=== PATIENT | female | born 1950 | race Caucasian/White ===

== ENCOUNTER 2017-10-09 11:41 | Observation (INO) | payer MEDICARE, OTHER ==
[2017-10-09] MEDS ORDERED: NITROGLYCERIN OINT 1 INCH/GM PACKET TOPICAL STA (12:14)
[2017-10-09] MEDS ORDERED: ACETAMINOPHEN TAB 500 MG TAB PO STA (12:14)
[2017-10-09] MEDS ORDERED: ASPIRIN 81 MG PO STA (12:14)
--- NOTE | 2017-10-09 12:22 | ED ---
General Adult HPI - General Chief complaint: Chest Pain Stated complaint: Chest pain Time Seen by Provider: 10/09/17 11:47 Source: patient, RN notes reviewed Mode of arrival: ambulatory Limitations: no limitations - History of Present Illness Initial comments: Patient is a pleasant [age]-year-old female presenting to the emergency Department with complaints of chest discomfort. Symptoms have been intermittent over the past several days to weeks. Discomfort was 8/10 however has improved with oxygen to 6/10. Patient describes discomfort as pressure. Patient states it is mostly left upper arm however also left anterior shoulder and into the neck. Patient states today there is some ideation towards the back. Symptoms are exertional. Patient has had some lightheadedness associated. No dyspnea. No nausea or vomiting. No diaphoresis. No leg pain or leg swelling. - Related Data Home Medications Medication Instructions Recorded Confirmed Albuterol Nebulized [Ventolin 2.5 mg INHALATION RT-Q4H PRN 10/09/17 10/09/17 Nebulized] Albuterol Sulfate [Proair Hfa] 2 puff INHALATION RT-Q6H PRN 10/09/17 10/09/17 Aspirin [Adult Low Dose Aspirin EC] 81 mg PO HS 10/09/17 10/09/17 Levothyroxine Sodium [Synthroid] 50 mcg PO DAILY 10/09/17 10/09/17 buPROPion HCL [Wellbutrin XL] 150 mg PO DAILY 10/09/17 10/09/17 Allergies Allergy/AdvReac Type Severity Reaction Status Date / Time Sulfa (Sulfonamide Allergy Rash/Hives Verified 10/09/17 12:15 Antibiotics) pentazocine [From Jamewin] AdvReac Nausea & Verified 10/09/17 12:15 Vomiting Review of Systems ROS Statement: Those systems with pertinent positive or pertinent negative responses have been documented in the HPI. ROS Other: All systems not noted in ROS Statement are negative. Constitutional: Denies: fever Eyes: Denies: eye pain ENT: Denies: ear pain Respiratory: Denies: cough, dyspnea Cardiovascular: Reports: chest pain Endocrine: Denies: fatigue Gastrointestinal: Denies: abdominal pain Genitourinary: Denies: dysuria Musculoskeletal: Denies: back pain Skin: Denies: rash Neurological: Denies: headache, weakness Past Medical History Past Medical History: Thyroid Disorder History of Any Multi-Drug Resistant Organisms: None Reported Past Surgical History: No Surgical Hx Reported Past Psychological History: PTSD Smoking Status: Current every day smoker Past Alcohol Use History: None Reported Past Drug Use History: None Reported General Exam Limitations: no limitations General appearance: alert, in no apparent distress Head exam: Present: atraumatic Eye exam: Present: normal appearance, PERRL ENT exam: Present: normal oropharynx Neck exam: Present: normal inspection Respiratory exam: Present: normal lung sounds bilaterally. Absent: chest wall tenderness Cardiovascular Exam: Present: regular rate, normal rhythm Expanded Peripheral pulses: 2+: Radial (R), Radial (L), Dorsalis Pedis (R), Dorsalis Pedis (L) GI/Abdominal exam: Present: soft. Absent: tenderness Extremities exam: Present: normal inspection. Absent: tenderness Back exam: Present: normal inspection. Absent: tenderness Neurological exam: Present: alert. Absent: motor sensory deficit Psychiatric exam: Present: normal affect, normal mood Skin exam: Present: normal color Course Vital Signs 10/09/17 10/09/17 10/09/17 11:43 12:30 14:30 Temperature 97 F L 97.5 F L Pulse Rate 68 65 66 Respiratory 20 16 18 Rate Blood Pressure 178/76 129/60 130/62 O2 Sat by Pulse 100 99 100 Oximetry - Reevaluation(s) Reevaluation #1: 10/09/17 12:15 Patient is concerned that she has white coat hypertension and her blood pressure may fall quickly with nitroglycerin therefore patient will be given Nitropaste. Patient is also concerned that she frequently gets headaches with Nitropaste and therefore will be given Tylenol along with this. EKG Findings - EKG Comments: EKG Findings:: Normal sinus rhythm 71. AK 162. QRS 102. QT 404. QTC 439. Normal axis. Normal QRS. No acute ST change. Medical Decision Making - Medical Decision Making Patient reevaluated and resting comfortably in bed. Patient is updated on results and plan. Case was discussed in detail with Dr. García, who will admit for Dr. Bull. - Lab Data Result diagrams: 10/09/17 12:30 10/09/17 12:30 Lab Results 10/09/17 10/09/17 10/09/17 Range/Units 12:30 12:30 12:30 WBC 6.1 (3.8-10.6) k/uL RBC 4.45 (3.80-5.40) m/uL Hgb 12.3 (11.4-16.0) gm/dL Hct 39.6 (34.0-46.0) % MCV 88.8 (80.0-100.0) fL MCH 27.7 (25.0-35.0) pg MCHC 31.2 (31.0-37.0) g/dL RDW 13.9 (11.5-15.5) % Plt Count 263 (150-450) k/uL Neutrophils % 66 % Lymphocytes % 19 % Monocytes % 7 % Eosinophils % 6 % Basophils % 1 % Neutrophils # 4.0 (1.3-7.7) k/uL Lymphocytes # 1.1 (1.0-4.8) k/uL Monocytes # 0.4 (0-1.0) k/uL Eosinophils # 0.4 (0-0.7) k/uL Basophils # 0.0 (0-0.2) k/uL Hypochromasia Slight PT (9.0-12.0) sec INR (<1.2) APTT (22.0-30.0) sec D-Dimer (<0.60) mg/L FEU Sodium 141 (137-145) mmol/L Potassium 4.4 (3.5-5.1) mmol/L Chloride 106 (98-107) mmol/L Carbon Dioxide 27 (22-30) mmol/L Anion Gap 8 mmol/L BUN 20 H (7-17) mg/dL Creatinine 0.80 (0.52-1.04) mg/dL Est GFR (MDRD) Af Amer >60 (>60 ml/min/1.73 sqM) Est GFR (MDRD) Non-Af >60 (>60 ml/min/1.73 sqM) Glucose 91 (74-99) mg/dL Calcium 8.9 (8.4-10.2) mg/dL Magnesium 2.0 (1.6-2.3) mg/dL Total Bilirubin 0.2 (0.2-1.3) mg/dL AST 24 (14-36) U/L ALT 24 (9-52) U/L Alkaline Phosphatase 100 (38-126) U/L Total Creatine Kinase 73 (30-135) U/L CK-MB (CK-2) 0.9 (0.0-2.4) ng/mL CK-MB (CK-2) Rel Index 1.2 Troponin I <0.012 (0.000-0.034) ng/mL Total Protein 6.1 L (6.3-8.2) g/dL Albumin 3.5 (3.5-5.0) g/dL 10/09/17 Range/Units 12:30 WBC (3.8-10.6) k/uL RBC (3.80-5.40) m/uL Hgb (11.4-16.0) gm/dL Hct (34.0-46.0) % MCV (80.0-100.0) fL MCH (25.0-35.0) pg MCHC (31.0-37.0) g/dL RDW (11.5-15.5) % Plt Count (150-450) k/uL Neutrophils % % Lymphocytes % % Monocytes % % Eosinophils % % Basophils % % Neutrophils # (1.3-7.7) k/uL Lymphocytes # (1.0-4.8) k/uL Monocytes # (0-1.0) k/uL Eosinophils # (0-0.7) k/uL Basophils # (0-0.2) k/uL Hypochromasia PT 10.2 (9.0-12.0) sec INR 1.0 (<1.2) APTT 23.8 (22.0-30.0) sec D-Dimer 0.55 (<0.60) mg/L FEU Sodium (137-145) mmol/L Potassium (3.5-5.1) mmol/L Chloride (98-107) mmol/L Carbon Dioxide (22-30) mmol/L Anion Gap mmol/L BUN (7-17) mg/dL Creatinine (0.52-1.04) mg/dL Est GFR (MDRD) Af Amer (>60 ml/min/1.73 sqM) Est GFR (MDRD) Non-Af (>60 ml/min/1.73 sqM) Glucose (74-99) mg/dL Calcium (8.4-10.2) mg/dL Magnesium (1.6-2.3) mg/dL Total Bilirubin (0.2-1.3) mg/dL AST (14-36) U/L ALT (9-52) U/L Alkaline Phosphatase (38-126) U/L Total Creatine Kinase (30-135) U/L CK-MB (CK-2) (0.0-2.4) ng/mL CK-MB (CK-2) Rel Index Troponin I (0.000-0.034) ng/mL Total Protein (6.3-8.2) g/dL Albumin (3.5-5.0) g/dL - Radiology Data Radiology results: image reviewed (Chest x-ray shows no acute process.) Disposition Clinical Impression: Chest pain Disposition: [facility] Referrals: Shannon Bull MD [Primary Care Provider] - 1-2 days Decision Time: 14:33
[2017-10-09 12:46] LABS: Basophils % (A) 1 %; Eosinophils # (A) 0.4 k/uL (0-0.7); Eosinophils % (A) 6 %; HCT 39.6 % (34.0-46.0); HGB 12.3 gm/dL (11.4-16.0); Hypochromasia Slight; Lymphocytes # (A) 1.1 k/uL (1.0-4.8); Lymphocytes % (A) 19 %; MCH 27.7 pg (25.0-35.0); MCHC 31.2 g/dL (31.0-37.0); MCV 88.8 fL (80.0-100.0); Monocytes # (A) 0.4 k/uL (0-1.0); Monocytes % (A) 7 %; Neutrophils % (A) 66 %; Platelet Count 263 k/uL (150-450); RBC 4.45 m/uL (3.80-5.40); RDW 13.9 % (11.5-15.5); WBC 6.1 k/uL (3.8-10.6)
--- NOTE | 2017-10-09 12:51 | XR ---
EXAMINATION TYPE: XR chest 2V DATE OF EXAM: 10/09/2017 COMPARISON: Chest x-ray June 27, 2011. HISTORY: Chest and upper back pain. TECHNIQUE: Frontal and lateral views of the chest are obtained. FINDINGS: Some eventration of right hemidiaphragm is redemonstrated. There is no focal air space [place], pleural effusion, or pneumothorax seen. The cardiac silhouette size is within normal limits. The osseous structures are intact. IMPRESSION: No acute cardiopulmonary process. No significant change from prior chest x-ray.
[2017-10-09 12:53] LABS: Partial Thromboplastin Time 23.8 sec (22.0-30.0); Prothrombin Time 10.2 sec (9.0-12.0)
[2017-10-09 12:58] LABS: D-Dimer 0.55 mg/L FEU (<0.60)
[2017-10-09 13:03] LABS: ALT 24 U/L (9-52); AST 24 U/L (14-36); Albumin 3.5 g/dL (3.5-5.0); Alkaline Phosphatase 100 U/L (38-126); Anion Gap 8 mmol/L; Blood Urea Nitrogen 20 mg/dL (7-17); Calcium 8.9 mg/dL (8.4-10.2); Carbon Dioxide 27 mmol/L (22-30); Chloride 106 mmol/L (98-107); Glucose 91 mg/dL (74-99); Potassium 4.4 mmol/L (3.5-5.1); Sodium 141 mmol/L (137-145); Total Bilirubin 0.2 mg/dL (0.2-1.3); Total Protein 6.1 g/dL (6.3-8.2)
[2017-10-09 13:06] LABS: Creatine Kinase 73 U/L (30-135)
[2017-10-09 13:19] LABS: Creatine Kinase MB 0.9 ng/mL (0.0-2.4); Troponin I <0.012 ng/mL (0.000-0.034)
[2017-10-09 14:33] VITALS: RESP 18
[2017-10-09] MEDS ORDERED: NITROGLYCERIN SL TABS 0.4 MG TAB SUBLINGUAL PRN (14:33)
[2017-10-09] MEDS: NITROGLYCERIN OINT 1 INCH/GM PACKET TOPICAL SCH (18:08)
[2017-10-09] MEDS ORDERED: HYDROcodone/APAP 5-325MG 1 EACH TAB PO PRN (18:15)
[2017-10-09] MEDS ORDERED: TEMAZEPAM 15 MG CAP PO PRN (18:15)
[2017-10-09] MEDS ORDERED: ALBUTEROL NEBULIZED 2.5 MG/3 ML INHALATION PRN ×2 (18:15)
[2017-10-09] MEDS ORDERED: ALPRAZolam 0.25 MG TAB PO PRN (18:27)
[2017-10-09 19:10] LABS: Creatine Kinase 60 U/L (30-135)
[2017-10-09 19:21] LABS: Creatine Kinase MB 0.9 ng/mL (0.0-2.4); Troponin I <0.012 ng/mL (0.000-0.034)
--- NOTE | 2017-10-09 19:58 | CT ---
EXAMINATION TYPE: CT brain sheyla bernardo DATE OF EXAM: 10/09/2017 COMPARISON: NONE HISTORY: Multiple falls Left sided neck pain and weakness with dizziness CT DLP: 1533.3 mGycm Automated exposure control for dose reduction was used. TECHNIQUE: CT scan of the head and cervical spine are performed without contrast. FINDINGS: Ventricles have normal size. There is no mass effect nor midline shift. There is no sign of intracranial hemorrhage. The calvarium is intact. There is no evidence of skull fracture. Cervical vertebra have normal alignment. There is narrowing and spurring at the C5-6 C6-7 disc spaces . The facet joints are intact. I see no fracture. There is mild hypertrophic facet arthropathy. The s kull base is intact. There is no subluxation. IMPRESSION: Spondylosis at C5-6 and C6-7. No fracture. Negative CT scan of the brain. No evidence of traumatic injury.
[2017-10-09] MEDS: ACETAMINOPHEN TAB 500 MG TAB PO PRN (19:59)
--- NOTE | 2017-10-09 20:13 | US ---
EXAMINATION TYPE: US carotid duplex BILAT DATE OF EXAM: 10/09/2017 COMPARISON: NONE CLINICAL HISTORY: dizziness, chest pain. Falling EXAM MEASUREMENTS: RIGHT: Peak Systolic Velocity (PSV) cm/sec ----- Right CCA: 72.6 ----- Right ICA: 63.8 ----- Right ECA: 104.6 ICA/CCA ratio: 0.9 RIGHT: End Diastole cm/sec ----- Right CCA: 17.3 ----- Right ICA: 27.5 ----- Right ECA: 8.6 LEFT: Peak Systolic Velocity (PSV) cm/sec ----- Left CCA: 70.0 ----- Left ICA: 83.2 ----- Left ECA: 88.7 ICA/CCA ratio: 1.2 LEFT: End Diastole cm/sec ----- Left CCA: 19.7 ----- Left ICA: 34.2 ----- Left ECA: 9.5 VERTEBRALS (direction of flow): Right Vertebral: Antegrade Left Vertebral: Antegrade Rhythm: Normal No significant stenosis seen IMPRESSION: There is antegrade flow in the vertebral arteries. The images and measurements suggest u p to 25% stenosis in both internal carotid arteries. Criteria for Assigning % of Stenosis / Diameter reduction (Estimation based on the indirect measurements of the internal carotid artery velocities (ICA PSV). 1. Normal (no stenosis)=ICA PSV < 125 cm/s: ratio < 2.0: ICA EDV<40 cm/s. 2. Less than 50% stenosis=ICA PSV < 125 cm/s: ratio < 2.0: ICA EDV<40 cm/s. 3. 50 to 69% stenosis=ICA PSV of 125 to 230 cm/s: ration 2.0 ? 4.0: ICA EDV 40-100 cm/s. 4. Greater than 70% stenosis to near occlusion= ICA PSV > 230 cm/s: ratio > 4.0: ICA EDV > 100 cm/s. 5. Near occlusion= ICA PSV velocities may be low or undetectable: variable ratio and ICA EDV. 6. Total occlusion=unable to detect flow.
--- NOTE | 2017-10-09 23:51 | HP ---
HISTORY AND PHYSICAL DATE OF SERVICE: 10/09/2017 CHIEF COMPLAINT: Chest pain. HISTORY OF PRESENT ILLNESS: This 67-year-old woman with a past medical history of hypothyroidism, history of partial tendon repair of the knee, history of bariatric surgery, history of PTSD, history of CVA, remote history of THC, being followed by Dr. Bull in the outpatient setting, was complaining of chest pain which was going on and off for the last 2 weeks. The pain was mostly on the shoulder, upper arm, right upper chest and neck and radiating to the jaw. Patient apparently had a fall also 2 or 3 times without any warning, and the patient is also complaining of pain in between the scapula which was radiating to the front of the chest. There is no history of fever or rigors, no history of headache, loss of consciousness, seizures. Troponins are negative. After admission the patient had a chest CT and head and cervical spine CT. The findings are pending at this time. Spondylosis C5-6 and C6-7 was noted. Carotid Doppler showed 24% stenosis in internal carotid artery. There is no history of fever, rigor or chills. No history of headache, loss of consciousness, seizures. PAST MEDICAL HISTORY: 1. History of hypothyroidism. 2. History of left renal hypertrophy. 3. History of bariatric surgery. 4. History of PTSD. MEDICATIONS PRIOR TO ADMISSION: 1. Albuterol 2 puffs q.6 p.r.n. 2. Wellbutrin 150 mg p.o. daily. 3. Synthroid 50 mcg p.o. daily. 4. Aspirin 81 mg. 5. Ventolin 2.5 q.4 p.r.n. ALLERGIES: 1. SULFA. 2. PENTAZOCINE. FAMILY HISTORY: History of CVA, TIA, myocardial infarction in multiple members of the family. SOCIAL HISTORY: Patient used to be an RN. No history of smoking. No history of alcohol intake. REVIEW OF SYSTEMS: ENT: No diminished hearing. No diminished vision. CARDIOVASCULAR SYSTEM: As mentioned earlier. RESPIRATORY SYSTEM: No cough, hemoptysis. GI: No nausea, vomiting. : No dysuria or retention. NERVOUS SYSTEM: No numbness, weakness. ALLERGY/IMMUNOLOGY: No asthma, hayfever. MUSCULOSKELETAL: As mentioned earlier. HEMATOLOGY/ONCOLOGY: No history of anemia. ENDOCRINE: No history of diabetes, hypothyroidism. CONSTITUTIONAL: As mentioned earlier. DERMATOLOGY: Negative. RHEUMATOLOGY: Negative. PSYCHIATRY: As mentioned earlier. PHYSICAL EXAMINATION: Patient alert and oriented x3. Pulse is 67, blood pressure 131/69, respiration 18, temperature 98.1, pulse ox 97% on room air. HEENT: Conjunctivae normal. Oral mucosa moist. NECK: No jugular venous distention. No carotid bruit. No lymph node enlargement. CARDIOVASCULAR SYSTEM: S1, S2 muffled. No S3. No S4. RESPIRATORY SYSTEM: Breath sounds diminished at the bases. No rhonchi. No crackles. ABDOMEN: Soft, non-tender. No mass palpable. LEGS: No edema. No swelling. NERVOUS SYSTEM: Higher functions as mentioned earlier. Moves all 4 limbs. No focal motor or sensory deficit. LYMPHATICS: No lymph node palpable in neck, axillae or groin. SKIN: No ulcer, rash, bleeding. LABS: CBC within normal limits. CMP normal except BUN is 20. Total protein is 6.1. ASSESSMENT: 1. Chest pain, possible unstable angina. 2. Rule out musculoskeletal pain. 3. Syncope of undetermined cause. 4. Hypothyroidism. 5. History of left ventricular hypertrophy. 6. History of thrombophlebitis. 7. History of polycystic ovary syndrome. 8. History of bariatric surgery. 9. History of cholecystectomy. 10.History of post-traumatic stress disorder. 11.Remote history of tetrahydrocannabinol. 12. RECOMMENDATIONS AND DISCUSSION: In this 67-year-old woman who presented with multiple complex medical issues, we will monitor the patient closely, continue the current medication, continue with symptomatic treatment. Otherwise, cardiology consultation. Telemetry. I would also recommend CT scans, as mentioned earlier. Two-D echo per Cardiology. I would also obtain urine testing in the a.m. Further recommendations to follow. Discussed with the patient, who understands and agrees. MMODL / IJN: [id number] /
[2017-10-10] MEDS: NITROGLYCERIN OINT 1 INCH/GM PACKET TOPICAL SCH ×2 (00:03→05:06)
[2017-10-10 00:52] LABS: Creatine Kinase 52 U/L (30-135)
[2017-10-10 01:05] LABS: Creatine Kinase MB 0.7 ng/mL (0.0-2.4); Troponin I <0.012 ng/mL (0.000-0.034)
[2017-10-10] MEDS: ACETAMINOPHEN TAB 500 MG TAB PO PRN ×2 (03:58→10:01)
[2017-10-10] MEDS ORDERED: LEVOTHYROXINE 50 MCG TAB PO SCH (06:30)
[2017-10-10 07:17] LABS: Basophils % (A) 1 %; Eosinophils # (A) 0.3 k/uL (0-0.7); Eosinophils % (A) 6 %; HCT 35.6 % (34.0-46.0); Hypochromasia Slight; Lymphocytes # (A) 1.2 k/uL (1.0-4.8); Lymphocytes % (A) 25 %; MCH 27.1 pg (25.0-35.0); MCHC 30.9 g/dL (31.0-37.0); MCV 87.7 fL (80.0-100.0); Mean Platelet Volume 7.6; Monocytes # (A) 0.3 k/uL (0-1.0); Monocytes % (A) 7 %; Neutrophils # (A) 2.9 k/uL (1.3-7.7); Neutrophils % (A) 59 %; Platelet Count 235 k/uL (150-450); RBC 4.06 m/uL (3.80-5.40); RDW 14.2 % (11.5-15.5); WBC 4.9 k/uL (3.8-10.6)
[2017-10-10] MEDS ORDERED: PANTOPRAZOLE 40 MG TABLET PO SCH (07:30)
[2017-10-10 07:31] LABS: Anion Gap 7 mmol/L; Blood Urea Nitrogen 21 mg/dL (7-17); Calcium 8.8 mg/dL (8.4-10.2); Carbon Dioxide 26 mmol/L (22-30); Chloride 107 mmol/L (98-107); Cholesterol 181 mg/dL (<200); Glucose 87 mg/dL (74-99); HDL Cholesterol 77 mg/dL (40-60); LDL Cholesterol,Calculated 83 mg/dL (0-99); Potassium 4.6 mmol/L (3.5-5.1); Sodium 140 mmol/L (137-145); Triglycerides 106 mg/dL (<150)
--- NOTE | 2017-10-10 07:41 | CT ---
EXAMINATION TYPE: CT chest wo con DATE OF EXAM: 10/09/2017 COMPARISON: NONE HISTORY: Multiple falls Left sided neck pain and weakness with dizziness CT DLP: 523.3 mGycm, Automated exposure control for dose reduction was used. CONTRAST: Performed injected with 0 mL of Omnipaque 350. TECHNIQUE: Axial images were obtained at 5 mm thick sections. Reconstructed images are reviewed on [employer] computer in the coronal plane. FINDINGS: Portion of the thyroid visualized is normal. No suspicious lung nodules or focal infiltrates are present. No pneumothorax is evident. Osseous stru ctures appear intact as visualized. No enlarged mediastinal or hilar adenopathy is evident. The ascending aorta diameter at the level o f the main pulmonary artery is 3.6 cm. The main pulmonary artery diameter at the bifurcation is 2.[address] sections are obtained through the upper abdomen. Small hiatal hernia is present. Postsurgi suleman changes are within the stomach. Cholecystectomy has been performed. IMPRESSIONS: 1. No acute process
[2017-10-10 07:54] VITALS: PULSE 70; TEMP 97.6
[2017-10-10] MEDS ORDERED: buPROPion XL 150 MG TAB.ER.24H PO SCH (09:00)
[2017-10-10] MEDS ORDERED: ASPIRIN 81 MG PO SCH (09:00)
[2017-10-10] MEDS ORDERED: ASPIRIN 325 MG TAB PO SCH (09:00)
[2017-10-10 09:06] LABS: Appearance,Urine Clear (Clear); Bilirubin,Urine Negative (Negative); Blood,Urine Negative (Negative); Color,Urine Yellow; Glucose,Urine (UA) Negative (Negative); Ketones,Urine Negative (Negative); Leukocyte Esterase,Urine Small (Negative); Mucus,Urine Rare /hpf; Protein,Urine Negative (Negative); RBC,Urine <1 /hpf (0-5); Specific Gravity,Urine 1.023 (1.001-1.035); Squamous Epithelial Cell,Urine 2 /hpf (0-4); Urobilinogen,Urine <2.0 mg/dL (<2.0); WBC,Urine 3 /hpf (0-5)
[2017-10-10 09:14] LABS: Amphetamine Screen,Urine Not Detected (NotDetected); Barbiturate Screen,Urine Not Detected (NotDetected); Benzodiazepines Screen,Urine Not Detected (NotDetected); Cocaine Screen,Urine Not Detected (NotDetected); Methadone Screen, Urine Not Detected (NotDetected); Opiate Screen,Urine Not Detected (NotDetected); Oxycodone Screen, Urine Not Detected (NotDetected); Phencyclidine Screen,Urine Not Detected (NotDetected); Tricyclic Antidepressant,Urine Not Detected (NotDetected); Urn Cannabinoid Scrn Not Detected (NotDetected)
[2017-10-10] MEDS ORDERED: REGADENOSON 0.4 MG/5 ML SYRINGE IV ONE (09:58)
[2017-10-10] MEDS ORDERED: AMINOPHYLLINE 500 MG/20 ML VIAL IV PRN (09:58)
[2017-10-10] MEDS ORDERED: SODIUM CHLORIDE 0.9% 250 ML IV ONE (10:21)
[2017-10-10] MEDS ORDERED: DOBUTamine DRIP for NUC MED 250 MG in DEXTROSE/WATER 1 250ML.BAG IV ONE (10:30)
--- NOTE | 2017-10-10 11:04 | ECHOF ---
Referral Reason:chest pain MEASUREMENTS -------- HEIGHT: 170.2 cm WEIGHT: 127.0 kg BP: 97/41 IVSd: 1.0 cm (0.6 - 1.1) LVIDd: 4.7 cm (3.9 - 5.3) LVPWd: 1.0 cm (0.6 - 1.1) IVSs: 1.4 cm LVIDs: 3.4 cm LVPWs: 1.5 cm LA Diam: 3.1 cm (2.7 - 3.8) LAESV Index (A-L): 25.63 ml/m Ao Diam: 3.2 cm (2.0 - 3.7) AV Cusp: 1.6 cm (1.5 - 2.6) LA Diam: 3.8 cm (2.7 - 3.8) EPSS: 0.2 cm MV E Ángel: 0.83 m/s MV DecT: 146 ms MV A Ángel: 0.86 m/s MV E/A Ratio: 0.97 RAP: 5.00 mmHg RVSP: 28.07 mmHg MV EF SLOPE: 115.14 mm/s (70 - 150) MV EXCURSION: 2.42 cm (> 18.000) FINDINGS -------- Sinus rhythm. Morbid Obesity The left ventricular size is normal. There is mild concentric left ventricular hypertrophy. Overa ll left ventricular systolic function is normal with, an EF between 55 - 60 %. The right ventricle is normal in size. Normal LA size by volume 22+/-6 ml/m2. The right atrial size is normal. 1.5mg of Definity was utilized for enhancement of images The aortic valve is trileaflet, and appears structurally normal. No aortic stenosis or regurgitation. Mild mitral regurgitation is present. No regurgitation noted There is no evidence of pulmonary hypertension. The right ventricular syst olic pressure, as measured by Doppler, is 28.07mmHg. There is no pulmonic regurgitation present. The aortic root size is normal. There is no pericardial effusion. CONCLUSIONS -------- 1. Morbid Obesity 2. The left ventricular size is normal. 3. There is mild concentric left ventricular hypertrophy. 4. Overall left ventricular systolic function is normal with, an EF between 55 - 60 %. 5. The right ventricle is normal in size. 6. Normal LA size by volume 22+/-6 ml/m2. 7. 1.5mg of Definity was utilized for enhancement of images 8. The aortic valve is trileaflet, and appears structurally normal. No aortic stenosis or regurgitati on. 9. Mild mitral regurgitation is present. 10. No regurgitation noted 11. There is no evidence of pulmonary hypertension. 12. The right ventricular systolic pressure, as measured by Doppler, is 28.07mmHg. 13. There is no pulmonic regurgitation present. 14. The aortic root size is normal. 15. There is no pericardial effusion. BACKUP ADMINISTRATOR: Shavonne Sterling RDCS
--- NOTE | 2017-10-10 12:28 | ECHOS ---
STRESS ECHOCARDIOGRAM INDICATIONS: Chest pain. MEDICATIONS: Synthroid, Wellbutrin, aspirin. BASELINE HEART RATE: 64 BASELINE BLOOD PRESSURE: 155/75 MAXIMUM HEART RATE: 135 MAXIMUM BLOOD PRESSURE: 135/76 85% MPHR: 132 100% MPHR: 153 MAXIMUM STAGE REACHED: 2 TOTAL EXERCISE TIME: 5:00 CLINICAL INFORMATION: Patient was given dobutamine infusion according to standard protocol. Peak heart rate of 135, was achieved. Maximum blood pressure of 135/76 mmHg was noted. Resting EKG shows normal sinus rhythm with normal UT interval and QRS duration and normal ST-T waves. No ST-segment depression suggestive of ischemia was noted. The baseline echocardiographic images reveal normal left ventricular chamber size with normal left ventricular systolic function. At the peak dose of dobutamine infusion, normal increase in the wall thickness and contractility is noted. FINAL IMPRESSION: 1. This dobutamine stress echocardiographic study is negative for stress-induced ischemia. 2. EKG portion of the stress test is not suggestive of ischemia. MMODL / IJN: [id number] /
--- NOTE | 2017-10-10 12:38 | P.CRDCN ---
History of Present Illness Consult date: 10/10/17 Consult reason: chest pain History of present illness: Mrs. Goldstein is a pleasant 67-year-old female past medical history significant for hypothyroidism. She also states she has a significant history of heart disease with her father and siblings all having decreased from heart related illnesses at young ages. She denies having personal history of heart disease and dose admit to having a cardiac catheterization many years ago in [place] that revealed no evidence of blockages, those records are unavailable to me. We have been asked to see her in consultation for complaints of chest pain. She states this started approximately 2-weeks ago she started having intermittent episodes of chest pain that radiated into her left shoulder, neck and jaw. She also has fallen a couple times in the last couple weeks that are precipitated by dizziness but no chest pain. She saw her PCP and stress test, carotid doppler and echocardiogram were ordered and scheduled for next week. However she was woken up yesterday in the middle of the night with pain in the mid-sternal region that she thought was possibly gas related but was unrelieved by typical remedies and then started to radiate around to the chest and left shoulder and jaw. For that reason she decided to come to the hospital for evaluation. The symptoms have resolved since admission. She denies any symptoms of palpitations, diaphoresis, nausea or vomiting. Telemetry tracings have been unremarkable. No evidence of bradycardia or arrhythmia. EKG on arrival reveals sinus mechanism with no acute ST or T-wave abnormalities. Chest xray is negative for an acute cardiopulmonary process. Laboratory data reviewed, cardiac enzymes negative 3, hemoglobin 11.0, platelets 235, d-dimer 0.55, potassium 4.6, magnesium 2.0, creatinine 0.76, LDL 83, HDL 77. Carotid duplex reveals evidence of less than 25% bilateral ICA stenosis. CT chest negative negative for an acute process. Current cardiac medications include aspirin 81 mg daily. There is no old diagnostic cardiac testing to review. Review of Systems At the time of my exam: CONSTITUTIONAL: Denies fever. Denies chills. EYES: Denies blurred vision. Denies vision changes. Denies eye pain. EARS, NOSE, MOUTH & THROAT: Denies headache. Denies sore throat. Denies ear pain. CARDIOVASCULAR: Denies chest pain. Denies shortness of breath. Denies orthopnea. Denies PND. Denies palpitations. RESPIRATORY: Denies cough. GASTROINTESTINAL: Denies abdominal pain. Denies diarrhea. Denies constipation. Denies nausea. Denies vomiting. MUSCULOSKELETAL: Denies myalgias. INTEGUMENTARY: Denies pruitis. Denies rash. NEUROLOGIC: Denies numbness. Denies tingling. Denies weakness. PSYCHIATRIC: Denies anxiety. Denies depression. ENDOCRINE: Denies fatigue. Denies weight change. Denies polydipsia. Denies polyurina. GENITOURINARY: Denies burning, hematuria or urgency with micturation. HEMATOLOGIC: Denies history of anemia. Denies bleeding. Past Medical History Past Medical History: Thyroid Disorder Additional Past Medical History / Comment(s): jun 2017 fall/rt partial torn tendon rt knee(no sx), ptsd, migraines,"lt ventricular hypertrophy", ddd lumbar , 1969's thrombophlebitis, micah fever as child,uti, polycystic ovaries. past psuedomonas in abd wound post op. History of Any Multi-Drug Resistant Organisms: None Reported Past Surgical History: Adenoidectomy, Bariatric Surgery, Section, Cholecystectomy, Tonsillectomy, Tubal Ligation Additional Past Surgical History / Comment(s): tbo, one dental implant rt side eye tooth,2 c-sections, gastric sleeve, tummy tuck, breast reduction Past Anesthesia/Blood Transfusion Reactions: No Reported Reaction Additional Past Anesthesia/Blood Transfusion Reaction / Comment(s): clausterphobia Smoking Status: Never smoker - Past Family History Mother Family Medical History: CVA/TIA, Myocardial Infarction ([place]) Father History Unknown: Yes Additional Family Medical History / Comment(s): father in his 40's not sure what from. Sister(s) Family Medical History: CVA/TIA Additional Family Medical History / Comment(s): 1 sister had stroke, 1 sister had pulmonary complications Brother(s) Family Medical History: Coronary Artery Disease (CAD), CVA/TIA, Pulmonary Embolus Additional Family Medical History / Comment(s): cabg at age 50, Medications and Allergies Home Medications Medication Instructions Recorded Confirmed Type Albuterol Nebulized [Ventolin 2.5 mg INHALATION RT-Q4H PRN 10/09/17 10/09/17 History Nebulized] Albuterol Sulfate [Proair Hfa] 2 puff INHALATION RT-Q6H PRN 10/09/17 10/09/17 History Aspirin [Adult Low Dose Aspirin EC] 81 mg PO HS 10/09/17 10/09/17 History Levothyroxine Sodium [Synthroid] 50 mcg PO DAILY 10/09/17 10/09/17 History buPROPion HCL [Wellbutrin XL] 150 mg PO DAILY 10/09/17 10/09/17 History Allergies Allergy/AdvReac Type Severity Reaction Status Date / Time Sulfa (Sulfonamide Allergy Rash/Hives Verified 10/09/17 12:15 Antibiotics) pentazocine [From Talwin] AdvReac Nausea & Verified 10/09/17 12:15 Vomiting Physical Exam Vitals: Vital Signs Temp Pulse Pulse Resp BP BP Pulse Ox 10/10/17 07:53 97.6 F 70 18 87/41 96 10/10/17 04:00 97.8 F 60 18 103/53 99 10/10/17 00:00 97 F L 70 18 121/65 96 10/09/17 20:00 98.1 F 72 18 131/69 97 10/09/17 15:10 97.0 F L 67 18 148/84 95 10/09/17 14:34 95 10/09/17 14:30 97.5 F L 66 18 130/62 100 10/09/17 12:30 65 16 129/60 99 10/09/17 11:43 97 F L 68 20 178/76 100 Intake and Output 10/09/17 10/10/17 10/10/17 22:59 06:59 14:59 Intake Total 800 100 Balance 800 100 Intake: Oral 600 100 Other 200 Other: Voiding Method Toilet Toilet # Voids 2 2 Weight 127.2 kg Blood pressure 87/41 heart rate 70 afebrile maintaining oxygen saturation greater been 92% on room air. GENERAL: This is a 67-year-old female in no apparent distress at the time of my examination. Obese. HEENT: Head is atraumatic, normocephalic. Pupils are equal, round. Sclerae anicteric. Conjunctivae are clear. Mucous membranes of the mouth are moist. Neck is supple. There is no jugular venous distention. No carotid bruit is heard. LUNGS: Clear to auscultation no wheezes, rales or rhonchi. No chest wall tenderness is noted on palpation or with deep breathing. HEART: Regular rate and rhythm without murmurs, rubs or gallops. S1 and S2 heard. ABDOMEN: Soft, nontender. Bowel sounds are heard. No organomegaly noted. EXTREMITIES: No evidence of peripheral edema and no calf tenderness noted. VASCULAR: Radial and dorsalis pedis pulses palpated, no evidence of clubbing. NEUROLOGIC: Patient is awake, alert and oriented x3. Results 10/10/17 06:43 10/10/17 06:43 Cardiac Enzymes 10/09/17 10/09/17 10/09/17 Range/Units 12:30 12:30 18:24 AST 24 (14-36) U/L CK-MB (CK-2) 0.9 0.9 (0.0-2.4) ng/mL Troponin I <0.012 <0.012 (0.000-0.034) ng/mL 10/10/17 Range/Units 00:09 AST (14-36) U/L CK-MB (CK-2) 0.7 (0.0-2.4) ng/mL Troponin I <0.012 (0.000-0.034) ng/mL Coagulation 10/09/17 Range/Units 12:30 PT 10.2 (9.0-12.0) sec APTT 23.8 (22.0-30.0) sec Lipids 10/10/17 Range/Units 06:43 Triglycerides 106 (<150) mg/dL Cholesterol 181 (<200) mg/dL HDL Cholesterol 77 H (40-60) mg/dL CBC 10/09/17 10/10/17 Range/Units 12:30 06:43 WBC 6.1 4.9 (3.8-10.6) k/uL RBC 4.45 4.06 (3.80-5.40) m/uL Hgb 12.3 11.0 L (11.4-16.0) gm/dL Hct 39.6 35.6 (34.0-46.0) % Plt Count 263 235 (150-450) k/uL Comprehensive Metabolic Panel 10/09/17 10/10/17 Range/Units 12:30 06:43 Sodium 141 140 (137-145) mmol/L Potassium 4.4 4.6 (3.5-5.1) mmol/L Chloride 106 107 (98-107) mmol/L Carbon Dioxide 27 26 (22-30) mmol/L BUN 20 H 21 H (7-17) mg/dL Creatinine 0.80 0.76 (0.52-1.04) mg/dL Glucose 91 87 (74-99) mg/dL Calcium 8.9 8.8 (8.4-10.2) mg/dL AST 24 (14-36) U/L ALT 24 (9-52) U/L Alkaline Phosphatase 100 (38-126) U/L Total Protein 6.1 L (6.3-8.2) g/dL Albumin 3.5 (3.5-5.0) g/dL Current Medications Generic Name Dose Route Start Last Admin Trade Name Freq PRN Reason Stop Dose Admin Acetaminophen 1,000 mg 10/09/17 18:27 10/10/17 03:58 Tylenol Tab PO 1,000 mg Q6HR PRN Administration Fever and/ or Pain Hydrocodone Bitart/Acetaminophen 1 each 10/09/17 18:15 [place] 5-325 PO Q6HR PRN Pain Albuterol Sulfate 2.5 mg 10/09/17 18:15 Ventolin Nebulized INHALATION RT-Q4H PRN Shortness Of Breath Alprazolam 0.25 mg 10/09/17 18:27 Xanax PO TID PRN Anxiety Aspirin 81 mg 10/10/17 09:00 Aspirin PO DAILY [facility] Bupropion HCl 150 mg 10/10/17 09:00 Wellbutrin Xl PO DAILY [facility] Levothyroxine Sodium 50 mcg 10/10/17 06:30 10/10/17 06:52 Synthroid PO 50 mcg 0630 [facility] Administration Nitroglycerin 0.5 inch 10/09/17 18:00 10/10/17 05:06 Nitro-Bid Oint TOPICAL Not Given Q6HR [facility] Nitroglycerin 0.4 mg 10/09/17 14:33 Nitrostat SUBLINGUAL Q5M PRN Chest Pain Pantoprazole Sodium 40 mg 10/10/17 07:30 Protonix PO AC-BRKFST [facility] Temazepam 15 mg 10/09/17 18:15 Restoril PO HS PRN Insomnia Intake and Output 10/09/17 10/10/17 10/10/17 22:59 06:59 14:59 Intake Total 800 100 Balance 800 100 Intake: Oral 600 100 Other 200 Other: Voiding Method Toilet Toilet # Voids 2 2 Weight 127.2 kg 10/10/17 06:43 10/10/17 06:43 Assessment and Plan Assessment: ASSESSMENT 1. Chest pain, atypical. No EKG evidence of ischemia and negative cardiac enzymes. Acute coronary event has been ruled out. 2. Dizziness with frequent falls recently. Carotid duplex negative for significant carotid artery stenosis. Possibly related to dehydration. 3. Obesity PLAN Obtain 2D echocardiogram and doppler study to assess cardiac structure and function. Perform dobutamine stress echocardiogram to evaluate for stress induced cardiac ishcemia. Repeat blood pressure. If above diagnostic testing is negative she is stable from a cardiac perspective. Nurse Practitioner note has been reviewed, I agree with a documented findings and plan of care. Patient was seen and examined.
[2017-10-10 13:52] VITALS: BP 146/72
--- NOTE | 2017-10-11 07:27 | DS ---
DISCHARGE SUMMARY FINAL DIAGNOSES: 1. Chest pain possible musculoskeletal chest pain. 2. Negative stress test. 3. Syncope, undetermined causes. 4. Hypothyroidism. 5. History of left ventricular hypertrophy. 6. History of thrombophlebitis. 7. History of polycystic ovarian syndrome. 8. History of bariatric surgery. 9. History of cholecystectomy. 10.History of posttraumatic stress disorder. 11.History of remote THC. DISCHARGE DISPOSITION: The patient will be discharged in stable condition with guarded prognosis. HISTORY OF PRESENT ILLNESS: This 67-year-old woman with a past medical history of multiple medical problems was admitted chest pain. Myocardial infarction ruled out and patient underwent a dobutamine stress echo which is reported as negative. Cardiology cleared the patient for discharge. The patient discharged in stable condition with guarded prognosis. Otherwise, I also recommend follow up closely with primary physician as well as cardiology. DISCHARGE ADVICE: 1. Diet is cardiac. 2. Activities limited until followup. 3. Follow up with Dr. Bull in 2-3 days. 4. Follow with as recommended. MEDICATIONS: 1. Albuterol 2.5 q.4h p.r.n. 2. Ecotrin 81 mg q.h.s. 3. Wellbutrin XR 150 mg. 4. Synthroid 50 mcg. 5. Prilosec 20 mg a.c. b.i.d. Once again, the patient is being discharged in stable condition with guarded prognosis. MMODL / IJN: [id number] / MTDD
== END 2017-10-10 15:22 | disposition home or self-care (01) ==
LOC: EC 11:41 → 3OBS 14:34
PROVIDERS: ADMIT Hospitalist; ATTEND Hospitalist
DX: R07.89 Other chest pain (principal); R55 Syncope and collapse; M54.2 Cervicalgia; M79.602 Pain in left arm; E03.9 Hypothyroidism, unspecified; I51.7 Cardiomegaly; F43.10 Post-traumatic stress disorder, unspecified; E28.2 Polycystic ovarian syndrome; E66.9 Obesity, unspecified; Z68.41 Body mass index [BMI] 40.0-44.9, adult; R29.6 Repeated falls; F17.200 Nicotine dependence, unspecified, uncomplicated; Z86.72 Personal history of thrombophlebitis; Z98.84 Bariatric surgery status; Z88.2 Allergy status to sulfonamides; Z88.5 Allergy status to narcotic agent; Z79.82 Long term (current) use of aspirin; Z79.899 Other long term (current) drug therapy; Z82.49 Family history of ischemic heart disease and other diseases of the circulatory system; Z82.3 Family history of stroke; Z86.73 Personal history of transient ischemic attack (TIA), and cerebral infarction without residual deficits; Z90.49 Acquired absence of other specified parts of digestive tract
CPT/HCPCS: 93005 ×2; 99285; 36415; 93017; 93350; 85379; 80061; 80053; 80048; 82550 ×2; 82553 ×2; 83735; 84484 ×2; 85025 ×2; 85610; 85730; 81001; 80306; 71046; 93880; 72125; 70450; 71250; G0378 ×2; C8929; Q9950; J1250; 93306

== ENCOUNTER 2017-10-21 03:16 | Emergency (ER) | payer MEDICARE, OTHER ==
[2017-10-21] MEDS ORDERED: ACETAMINOPHEN TAB 500 MG TAB PO STA (04:14)
[2017-10-21] MEDS ORDERED: AMOXIC-POT CLAV 500-125 MG 1 EACH TAB PO STA (04:14)
--- NOTE | 2017-10-21 05:02 | ED ---
ENT HPI - General Chief complaint: ENT Stated complaint: difficulty swallowing Time Seen by Provider: 10/21/17 03:56 Source: patient Mode of arrival: ambulatory Limitations: no limitations - History of Present Illness Initial comments: 67 years O female complaining about sore throat and difficulty swallowing she said she had a leftover amoxicillin numb at home she uses that and that did help him she denies any fever no chills no neck stiffness no chest pain or shortness of breath no abdominal pain no frequency urgency dysuria - Related Data Home Medications Medication Instructions Recorded Confirmed Albuterol Sulfate [Proair Hfa] 2 puff INHALATION RT-Q6H PRN 10/09/17 10/09/17 Aspirin [Adult Low Dose Aspirin EC] 81 mg PO HS 10/09/17 10/09/17 Levothyroxine Sodium [Synthroid] 50 mcg PO DAILY 10/09/17 10/09/17 buPROPion HCL [Wellbutrin XL] 150 mg PO DAILY 10/09/17 10/09/17 Previous Rx's Medication Instructions Recorded Albuterol Nebulized [Ventolin 2.5 mg INHALATION QID #0 10/10/17 Nebulized] Omeprazole [PriLOSEC] 20 mg PO AC-BID #60 cap 10/10/17 Amoxicillin 500 mg PO Q8H #30 capsule 10/21/17 Allergies Allergy/AdvReac Type Severity Reaction Status Date / Time Sulfa (Sulfonamide Allergy Rash/Hives Verified 10/21/17 03:25 Antibiotics) pentazocine [From Angelica] AdvReac Nausea & Verified 10/21/17 03:25 Vomiting Review of Systems ROS Statement: Those systems with pertinent positive or pertinent negative responses have been documented in the HPI. ROS Other: All systems not noted in ROS Statement are negative. Past Medical History Past Medical History: Thyroid Disorder Additional Past Medical History / Comment(s): jun 2017 fall/rt partial torn tendon rt knee(no sx), ptsd, migraines,"lt ventricular hypertrophy", ddd lumbar , 1970's thrombophlebitis, micah fever as child,uti, polycystic ovaries. past psuedomonas in abd wound post op. History of Any Multi-Drug Resistant Organisms: None Reported Past Surgical History: Adenoidectomy, Bariatric Surgery, Section, Cholecystectomy, Tonsillectomy, Tubal Ligation Additional Past Surgical History / Comment(s): tbo, one dental implant rt side eye tooth,2 c-sections, gastric sleeve, tummy tuck, breast reduction Past Anesthesia/Blood Transfusion Reactions: No Reported Reaction Additional Past Anesthesia/Blood Transfusion Reaction / Comment(s): clausterphobia Past Psychological History: PTSD Smoking Status: Never smoker Past Alcohol Use History: None Reported Past Drug Use History: None Reported - Past Family History Mother Family Medical History: CVA/TIA, Myocardial Infarction ([place]) Father History Unknown: Yes Additional Family Medical History / Comment(s): father in his 40's not sure what from. Sister(s) Family Medical History: CVA/TIA Additional Family Medical History / Comment(s): 1 sister had stroke, 1 sister had pulmonary complications Brother(s) Family Medical History: Coronary Artery Disease (CAD), CVA/TIA, Pulmonary Embolus Additional Family Medical History / Comment(s): cabg at age 50, General Exam - General Exam Comments Initial Comments: General: The patient is awake and alert, in no distress, and does not appear acutely ill. Skin: Skin is warm and dry and no rashes or lesions are noted. Eye: Pupils are equal, round and reactive to light, extra-ocular movements are intact; there is normal conjunctiva bilaterally. Ears, nose, mouth and throat: There are moist mucous membranes and no oral lesions. Mild erythema noticed in the oropharynx Neck: The neck is supple, there is no tenderness , no signs of meningitis Cardiovascular: There is a regular rate and rhythm. No murmur, rub or gallop is appreciated. Respiratory: To auscultation bilateral, no wheezing no rhonchi no distress respiratory childers noticed Gastrointestinal: Soft, non-distended, non-tender abdomen without masses or organomegaly noted. There is no rebound or guarding present. Bowel sounds are unremarkable. Back: There is no tenderness to palpation in the midline. There is no obvious deformity. Musculoskeletal: Normal ROM, no tenderness, There is no pedal edema. There is no calf tenderness or swelling. No cords were appreciated. Neurological: CN II-XII intact, Cranial nerves III through XII are intact. There are no obvious motor or sensory deficits. Coordination appears grossly intact. Speech is normal. Psychiatric: Cooperative, appropriate mood & affect, normal judgment. Limitations: no limitations Course Vital Signs 10/21/17 10/21/17 03:21 05:13 Temperature 97.9 F Pulse Rate 79 69 Respiratory 20 18 Rate Blood Pressure 175/89 142/67 O2 Sat by Pulse 100 98 Oximetry Soft tissue bilateral neck is unremarkable, she be gone home on now amoxicillin 500 mg 3 times a day, she be referred to ENT Dr. Tipton for a scope to rule out any pathology Medical Decision Making - Lab Data Lab Results 10/21/17 Range/Units 04:07 Group A Strep Rapid Negative (Negative) Disposition Clinical Impression: Sore throat Disposition: HOME SELF-CARE Condition: Good Instructions: Pharyngitis (ED) Prescriptions: Amoxicillin 500 mg PO Q8H #30 capsule Referrals: Shannon Bull MD [Primary Care Provider] - 1-2 days Kaushal Tipton DO [Doctor of Osteopathic Medicine] - 1-2 days
[2017-10-21 05:13] VITALS: BP 142/67; PULSE 69; RESP 18
--- NOTE | 2017-10-21 05:17 | XR ---
EXAM: XR Soft Tissue Neck CLINICAL HISTORY: ITS.REASON XR Reason: Rule out retropharyngeal abscess TECHNIQUE: Frontal and lateral views of the soft tissues of the neck. COMPARISON: No relevant prior studies available. FINDINGS: Airway: No airway narrowing. Retropharyngeal space: No retropharyngeal mass. Bones/joints: Degenerative changes of the spine more prominent at the lower aspect. Soft tissues: No radiopaque foreign body. Normal epiglottis. Other findings: No other significant abnormalities. IMPRESSION: No definite retropharyngeal abscess by radiography.
[2017-10-21 05:39] VITALS: TEMP 97
== END 2017-10-21 05:39 | disposition home or self-care (01) ==
LOC: EC 03:16
DX: J02.9 Acute pharyngitis, unspecified (principal); E07.9 Disorder of thyroid, unspecified; Z88.2 Allergy status to sulfonamides; Z88.8 Allergy status to other drugs, medicaments and biological substances; Z79.82 Long term (current) use of aspirin; Z79.899 Other long term (current) drug therapy
CPT/HCPCS: 70360; 87081; 87430; 99284

== ENCOUNTER 2019-07-18 00:46 | Emergency (ER) | payer MEDICARE, OTHER ==
[2019-07-18] MEDS ORDERED: SODIUM CHLORIDE 0.9% 1,000 ML IV ONE (01:05)
[2019-07-18 02:03] LABS: Basophils % (A) 1 %; Eosinophils # (A) 0.2 k/uL (0-0.7); Eosinophils % (A) 5 %; HCT 38.7 % (34.0-46.0); HGB 12.1 gm/dL (11.4-16.0); Lymphocytes # (A) 1.4 k/uL (1.0-4.8); Lymphocytes % (A) 26 %; MCH 27.8 pg (25.0-35.0); MCHC 31.4 g/dL (31.0-37.0); MCV 88.7 fL (80.0-100.0); Mean Platelet Volume 6.9; Monocytes # (A) 0.4 k/uL (0-1.0); Monocytes % (A) 7 %; Neutrophils % (A) 59 %; Platelet Count 222 k/uL (150-450); RBC 4.36 m/uL (3.80-5.40); RDW 14.8 % (11.5-15.5); WBC 5.2 k/uL (3.8-10.6)
[2019-07-18 02:12] LABS: ALT 19 U/L (9-52); AST 23 U/L (14-36); African American GFR (CKD) >90 (>60 ml/min/1.73 sqM); Albumin 3.5 g/dL (3.5-5.0); Alkaline Phosphatase 94 U/L (38-126); Anion Gap 3 mmol/L; Blood Urea Nitrogen 21 mg/dL (7-17); Calcium 8.5 mg/dL (8.4-10.2); Carbon Dioxide 26 mmol/L (22-30); Chloride 109 mmol/L (98-107); Glucose 97 mg/dL (74-99); INR 0.9 (<1.2); Non-African American GFR(CKD) >90 (>60 ml/min/1.73 sqM); Partial Thromboplastin Time 23.3 sec (22.0-30.0); Potassium 4.3 mmol/L (3.5-5.1); Prothrombin Time 9.9 sec (9.0-12.0); Sodium 138 mmol/L (137-145); Total Bilirubin 0.5 mg/dL (0.2-1.3); Total Protein 6.1 g/dL (6.3-8.2)
--- NOTE | 2019-07-18 02:28 | XR ---
EXAMINATION TYPE: XR Hip Complete RT DATE OF EXAM: 07/18/2019 COMPARISON: NONE HISTORY: Fall. Hip pain TECHNIQUE: 2 views FINDINGS: Proximal femur appears intact. Acetabulum is intact. Hip joint space is fairly normal. I se e no fracture nor dislocation. IMPRESSION: Negative right hip exam.
--- NOTE | 2019-07-18 02:30 | CT ---
EXAMINATION TYPE: CT brain wo con DATE OF EXAM: 07/18/2019 COMPARISON: 10/09/2017 HISTORY: fall hit right side of head CT DLP: 1086.4 mGycm Automated exposure control for dose reduction was used. Ventricles have normal size. There is no mass effect nor midline shift. There is no sign of intracran ial hemorrhage. Calvarium is intact. There is some mucosal thickening in the ethmoid and maxillary si nuses. Skull base is intact. IMPRESSION: There is some ethmoid and maxillary sinusitis that is increased in the maxillary sinus compared to ol d exam. No acute intracranial abnormality. Brain unchanged compared to old exam.
--- NOTE | 2019-07-18 02:41 | ED ---
Fall HPI - General Chief Complaint: Fall Stated Complaint: Fall,Head Injury Time Seen by Provider: 07/18/19 01:05 Source: patient, family Mode of arrival: ambulatory - History of Present Illness Initial Comments: Adriana is a pleasant 69-year-old female who is in fact a retired equipment coordinator who presents the ER today for evaluation of head injury. Patient states that she got up from the couch walk towards her pantry lost her balance and fell striking her head on the door. Patient denies any preceding lightheadedness chest pain dizziness. Patient reports that she does not have any loss of consciousness but was sitting on the ground feeling somewhat stunned. Upon sitting up she noted that she seemed to be experiencing some vertigo-like symptoms. Patient doesn't fact of a history of vertigo, she has a prescription for meclizine at home but hasn't taken any prior to coming in. She states that she became concerned because her sister had a fall with a fatal int racranial bleed 2 years ago. - Related Data Home Medications Medication Instructions Recorded Confirmed Albuterol Sulfate [Proair Hfa] 2 puff INHALATION RT-Q6H PRN 10/09/17 10/09/17 Aspirin [Adult Low Dose Aspirin EC] 81 mg PO HS 10/09/17 10/09/17 Levothyroxine Sodium [Synthroid] 50 mcg PO DAILY 10/09/17 10/09/17 buPROPion HCL [Wellbutrin XL] 150 mg PO DAILY 10/09/17 10/09/17 Previous Rx's Medication Instructions Recorded Albuterol Nebulized [Ventolin 2.5 mg INHALATION QID #0 10/10/17 Nebulized] Omeprazole [PriLOSEC] 20 mg PO AC-BID #60 cap 10/10/17 Amoxicillin 500 mg PO Q8H #30 capsule 10/21/17 Allergies Allergy/AdvReac Type Severity Reaction Status Date / Time Sulfa (Sulfonamide Allergy Rash/Hives Verified 07/18/19 00:57 Antibiotics) pentazocine [From Angelica] AdvReac Nausea & Verified 07/18/19 00:57 Vomiting Review of Systems ROS Statement: Those systems with pertinent positive or pertinent negative responses have been documented in the HPI. ROS Other: All systems not noted in ROS Statement are negative. Past Medical History Past Medical History: Thyroid Disorder Additional Past Medical History / Comment(s): jun 2017 fall/rt partial torn tendon rt knee(no sx), ptsd, migraines,"lt ventricular hypertrophy", ddd lumbar, 1970's thrombophlebitis, micah fever as child,uti, polycystic ovaries. past psuedomonas in abd wound post op. History of Any Multi-Drug Resistant Organisms: None Reported Past Surgical History: Adenoidectomy, Bariatric Surgery, Section, Cholecystectomy, Tonsillectomy, Tubal Ligation Additional Past Surgical History / Comment(s): tbo, one dental implant rt side eye tooth,2 c-sections, gastric sleeve, tummy tuck, breast reduction Past Anesthesia/Blood Transfusion Reactions: No Reported Reaction Additional Past Anesthesia/Blood Transfusion Reaction / Comment(s): clausterphobia Past Psychological History: PTSD Smoking Status: Never smoker Past Alcohol Use History: None Reported Past Drug Use History: None Reported - Past Family History Mother Family Medical History: CVA/TIA, Myocardial Infarction (NH) Father History Unknown: Yes Additional Family Medical History / Comment(s): father in his 40's not sure what from. Sister(s) Family Medical History: CVA/TIA Additional Family Medical History / Comment(s): 1 sister had stroke, 1 sister had pulmonary complications Brother(s) Family Medical History: Coronary Artery Disease (CAD), CVA/TIA, Pulmonary Embolus Additional Family Medical History / Comment(s): cabg at age 50, General Exam - General Exam Comments Initial Comments: Physical Exam GENERAL: Patient is well-developed and well-nourished. Patient is nontoxic and well- hydrated and is in no distress. HENT: Normocephalic, Atraumatic. EYES: PERRL, EOMI PULMONARY: Unlabored respirations. No audible rales rhonchi or wheezing was noted. CARDIOVASCULAR: There is a regular rate and rhythm without any murmurs gallops or rubs. ABDOMEN: Soft and nontender with normal bowel sounds. SKIN: Skin is clear with no lesions or rashes and otherwise unremarkable. : Deferred NEUROLOGIC: Patient is alert and oriented x3. Moving all extremities spontaneously Reproducible horizontal nystagmus upon turning the head to the right MUSCULOSKELETAL: Normal extremities with adequate strength and full range of motion. No lower extremity swelling or edema. No calf tenderness. PSYCHIATRIC: Normal psychiatric evaluation. Limitations: no limitations Course Vital Signs 07/18/19 07/18/19 00:53 02:50 Temperature 97.7 F 98 F Pulse Rate 70 69 Respiratory 20 18 Rate Blood Pressure 150/76 135/72 O2 Sat by Pulse 100 98 Oximetry Medical Decision Making - Medical Decision Making The patient was seen and evaluated, history is obtained from the patient and daughter bedside next I patient had a mechanical trip and fall striking her head did not lose consciousness but is experiencing vertigo since that time. Labs and imaging were ordered. Imaging resulted with no acute intracranial pathology. X-ray was negative simply has bruising at the hip from her fall. Results were discussed with the patient, patient expresses relief. I offer the patient medications for treatment of her vertigo however she declined saying she'll treated at home if she still having symptoms after getting a good night sleep. All questions pertaining care were answered return parameters were discussed patient was discharged home in stable condition - Lab Data Result diagrams: 07/18/19 01:55 07/18/19 01:55 Lab Results 07/18/19 07/18/19 07/18/19 Range/Units 01:55 01:55 01:55 WBC 5.2 (3.8-10.6) k/uL RBC 4.36 (3.80-5.40) m/uL Hgb 12.1 (11.4-16.0) gm/dL Hct 38.7 (34.0-46.0) % MCV 88.7 (80.0-100.0) fL MCH 27.8 (25.0-35.0) pg MCHC 31.4 (31.0-37.0) g/dL RDW 14.8 (11.5-15.5) % Plt Count 222 (150-450) k/uL Neutrophils % 59 % Lymphocytes % 26 % Monocytes % 7 % Eosinophils % 5 % Basophils % 1 % Neutrophils # 3.0 (1.3-7.7) k/uL Lymphocytes # 1.4 (1.0-4.8) k/uL Monocytes # 0.4 (0-1.0) k/uL Eosinophils # 0.2 (0-0.7) k/uL Basophils # 0.0 (0-0.2) k/uL PT 9.9 (9.0-12.0) sec INR 0.9 (<1.2) APTT 23.3 (22.0-30.0) sec Sodium 138 (137-145) mmol/L Potassium 4.3 (3.5-5.1) mmol/L Chloride 109 H (98-107) mmol/L Carbon Dioxide 26 (22-30) mmol/L Anion Gap 3 mmol/L BUN 21 H (7-17) mg/dL Creatinine 0.68 (0.52-1.04) mg/dL Est GFR (CKD-EPI)AfAm >90 (>60 ml/min/1.73 sqM) Est GFR (CKD-EPI)NonAf >90 (>60 ml/min/1.73 sqM) Glucose 97 (74-99) mg/dL Calcium 8.5 (8.4-10.2) mg/dL Total Bilirubin 0.5 (0.2-1.3) mg/dL AST 23 (14-36) U/L ALT 19 (9-52) U/L Alkaline Phosphatase 94 (38-126) U/L Total Protein 6.1 L (6.3-8.2) g/dL Albumin 3.5 (3.5-5.0) g/dL - EKG Data -: EKG Interpreted by [facility] EKG Comments: EKG was obtained due to complaint of fall, EKG was obtained at 1:25 AM, rate is 71 rhythm is sinus there is a normal axis and normal intervals, MO 156, QRS 104, QTC is 449 there are no acute ST elevations or depressions no evidence of acute ischemia or infarction or arrhythmia. Disposition Clinical Impression: Fall, Vertigo Disposition: HOME SELF-CARE Condition: Stable Instructions (If sedation given, give patient instructions): Fall Prevention (ED) Is patient prescribed a controlled substance at d/c from ED?: No Referrals: Shannon Bull MD [Primary Care Provider] - 1-2 days
[2019-07-18 03:06] VITALS: BP 135/72; PULSE 69; RESP 18; TEMP 98
== END 2019-07-18 03:07 | disposition home or self-care (01) ==
LOC: EC 00:46
DX: H55.00 Unspecified nystagmus (principal); S70.01XA Contusion of right hip, initial encounter; S09.90XA Unspecified injury of head, initial encounter; E07.9 Disorder of thyroid, unspecified; F43.10 Post-traumatic stress disorder, unspecified; Z88.2 Allergy status to sulfonamides; Z79.82 Long term (current) use of aspirin; Z79.890 Hormone replacement therapy; Z79.899 Other long term (current) drug therapy; Z88.6 Allergy status to analgesic agent; Z87.39 Personal history of other diseases of the musculoskeletal system and connective tissue; W01.198A Fall on same level from slipping, tripping and stumbling with subsequent striking against other object, initial encounter; Y93.01 Activity, walking, marching and hiking; Y92.009 Unspecified place in unspecified non-institutional (private) residence as the place of occurrence of the external cause; Z53.20 Procedure and treatment not carried out because of patient's decision for unspecified reasons
CPT/HCPCS: 36415; 70450; 73502; 80053; 85025; 85610; 85730; 99284